=== PATIENT | male | born 1985 | race Caucasian/White ===

== ENCOUNTER 2017-05-01 19:01 | Emergency (ER) | payer BC ==
[2017-05-01] MEDS ORDERED: prednisoLONE Soln 15 MG/5 ML UD Cup PO ONE (19:26)
--- NOTE | 2017-05-01 19:32 | EDM.PDOC ---
ED HPI GENERAL MEDICAL PROBLEM - General Chief Complaint: Abdominal Pain Stated Complaint: SORE THROAT Time Seen by Provider: 05/01/17 19:26 Source of Information: Reports: Patient History Limitations: Reports: No Limitations - History of Present Illness INITIAL COMMENTS - FREE TEXT/NARRATIVE: HISTORY AND PHYSICAL: []31-year-old male speaking quite "hoarsely" presents with sore throat some abdominal pain and diarrhea History of Present Illness: []Patient became ill yesterday called in sick to work today Has difficulty with gag reflex Has had diarrhea today multiple times Abdominal pain has improved Review of Systems: As per history of present illness and below otherwise all systems reviewed and negative. Past medical history: As per history of present illness and as reviewed below otherwise noncontributory. Surgical history: As per history of present illness and as reviewed below otherwise noncontributory. Social history: No reported history of drug or alcohol abuse. Family history: As per history of present illness and as reviewed below otherwise noncontributory. Physical exam: Alert and oriented male who has a little bit difficulty speaking. He does speak in full sentences without any shortness of breath. HEENT: Atraumatic, normocehpalic, pupils reactive, negative for conjunctival pallor or scleral icterus, mucous membranes moist, throat clear, neck supple, nontender, trachea midline. Tonsils 3+ on the right side left side 1+ with exudate. Edema present positive cervical adenopathy. Lungs: Clear to auscultation, breath sounds equal bilaterally, chest non tender. Heart: S1S2, regular, negative for clicks, rubs, or JVD. Abdomen: Soft, nondistended, nontender. Negative for masses or hepatossplenmegaly. Negative for costovertebral tenderness. Pelvis: Stable nontender. Genitourinary: Deferred. Rectal: Deferred Extremities: Atraumatic, negative for cords or calf pain. Neurovascular unremarkable. Neuro: Awake, alert, oriented. Cranial nerves II through XII unremarkable. Cerebellum unremarkable. Motor and sensory unremarkable throughout. Exam nonfocal. Diagnostics: [] Therapeutics: [Prednisolone syrup] Impression: [Acute tonsillitis Gastroenteritis] Plan: [Discharged to home Medrol Dosepak Augmentin 875 twice a day 7 days Follow-up with your primary care provider in 2 days] Definitive disposition and diagnosis as appropriate pending reevaluation and review of above. ED ROS GENERAL - Review of Systems Review Of Systems: ROS reveals no pertinent complaints other than HPI. ED EXAM, GI/ABD - Physical Exam Exam: See Below (See dictation) Course - Orders/Labs/Meds Orders: Active Orders 24 hr Category Date Time Status prednisoLONE [OraPred 15 MG/5ML Soln] Med 05/01/17 19:26 Once 30 mg PO ONETIME ONE Departure - Departure Time of Disposition: 19:33 Disposition: Home, Self-Care 01 Condition: Good Clinical Impression: Gastroenteritis, Tonsillitis - Discharge Information Referrals: PCP,None [Primary Care Provider] - Additional Instructions: The following information is given to patients seen in the emergency department who are being discharged to home. This information is to outline your options for follow-up care. We provide all patients seen in our emergency department with a follow-up referral. The need for follow-up, as well as the timing and circumstances, are variable depending upon the specifics of your emergency department visit. If you don't have a primary care physician on staff, we will provide you with a referral. We always advise you to contact your personal physician following an emergency department visit to inform them of the circumstance of the visit and for follow-up with them and/or the need for any referrals to a consulting specialist. The emergency department will also refer you to a specialist when appropriate. This referral assures that you have the opportunity for followup care with a specialist. All of these measure are taken in an effort to provide you with optimal care, which includes your followup. Under all circumstances we always encourage you to contact your private physician who remains a resource for coordinating your care. When calling for followup care, please make the office aware that this follow-up is from your recent emergency room visit. If for any reason you are refused follow-up, please contact the [facility] emergency department at and asked to speak to the emergency department charge nurse. Prescription has been sent to [facility] for Augmentin 875 one twice a day 7 days Medrol Dosepak as described Follow-up with your primary care provider in 2 days Work note has been signed for 2 days - My Orders Last 24 Hours: My Active Orders 05/01/17 19:26 prednisoLONE [OraPred 15 MG/5ML Soln] 30 mg PO ONETIME ONE - Assessment/Plan Last 24 Hours: My Active Orders 05/01/17 19:26 prednisoLONE [OraPred 15 MG/5ML Soln] 30 mg PO ONETIME ONE
[2017-05-01] MEDS ORDERED: Penicillin G Benzathine 1,200,000 Units/2 ML Syringe IM ONE (19:43)
== END 2017-05-01 21:21 | disposition home or self-care (01) ==
LOC: MW.ED 19:01
DX: K52.9 Noninfective gastroenteritis and colitis, unspecified (principal); J03.90 Acute tonsillitis, unspecified
CPT/HCPCS: 96372; 99283; A9270; J0561